=== PATIENT | female | born 1990 | race Caucasian/White ===

== ENCOUNTER 2016-08-27 11:15 | Emergency (ER) | payer OTHER | END 2016-08-27 13:02 | disposition home or self-care (01) | LOC: ER 11:15 | DX: R11.2 Nausea with vomiting, unspecified (principal); R19.7 Diarrhea, unspecified; R10.9 Unspecified abdominal pain; F41.9 Anxiety disorder, unspecified | CPT/HCPCS: 36415; 96361; 96374 ==